=== PATIENT | female | born 1985 | race Caucasian/White ===

== ENCOUNTER → 2019-04-13 | Outpatient (CLI) | payer OTHER, MEDICAID ==
[~2019-04-13] MED LIST: ADDERALL 15 MG15 MG PO; DURAGESIC1 EAC4; LYRICA 75 MG CA75 MG PO; NORFLEX100 MG PO; PAMELOR25 MG PO; PHENERGAN 25 MG25 M1 PO; PREDNISONE 10 M10 MG PO; SIMPONI50 MG/0.5; TUMERIC PO
== END ==
LOC: M.PC 09:50
DX: M47.816 Spondylosis without myelopathy or radiculopathy, lumbar region (principal); S16.1XXA Strain of muscle, fascia and tendon at neck level, initial encounter; X58.XXXA Exposure to other specified factors, initial encounter; Y93.89 Activity, other specified; Y92.89 Other specified places as the place of occurrence of the external cause; Y99.8 Other external cause status; Z87.11 Personal history of peptic ulcer disease